=== PATIENT | female | born 1960 ===

== ENCOUNTER 2017-09-27 13:43 | Emergency (ER) | payer BC ==
[2017-09-27 14:02] VITALS: BMI 24.4
[2017-09-27 14:04] VITALS: RESP 18; O2SAT 100
[2017-09-27] MEDS ORDERED: Sodium Chloride 0.9% 1,000 ML IV STA (14:16)
--- NOTE | 2017-09-27 14:17 | ED PDOC ---
Arrival/HPI - General Time Seen by Provider: 09/27/17 13:48 Historian: Patient, Spouse - History of Present Illness Narrative History of Present Illness (Text): 09/27/17 14:11 Patient is a 57 year old female whose past medical history includes hypertension , who present to the Emergency department with her complaining of bilateral sided chest pain and epigastric pain that started 1 hour ago. Patient is primarily [place]ian speaking and her is translating for her. She reports waking up this morning with a headache and subsequently took her hypertension medication. She subsequently started feeling subjective chills along with epigastric pain, chest pain and diarrhea. She notes feeling well yesterday. Patient denies history of diabetes or any recent cardiology work up. Patient denies that her chest pain is exacerbated with breathing. Of note she mentions that her chest and epigastric pain is improving. Patient denies any sore throat, cough, shortness of breath, nausea, vomiting, urinary changes, back pain, new rashes, depression, or any other associated symptoms. Time/Duration: 1 hour Symptom Onset: Sudden Symptom Course: Improving Context: Home (after taking antihypertensive medication) Past Medical History - Provider Review Nursing Documentation Reviewed: Yes - Infectious Disease Hx of Infectious Diseases: None - Cardiac Hx Cardiac Disorders: Yes (chest pain 03/08/13) Hx Hypertension: Yes - Pulmonary Hx Respiratory Disorders: Yes Hx Asthma: Yes - Neurological Hx Neurological Disorder: No - HEENT Hx HEENT Disorder: No - Renal Hx Renal Disorder: No - Endocrine/Metabolic Hx Endocrine Disorders: No - Hematological/Oncological Hx Blood Disorders: No - Integumentary Hx Dermatological Disorder: No - Musculoskeletal/Rheumatological Hx Musculoskeletal Disorders: Yes Hx Arthritis: Yes - Gastrointestinal Hx Gastrointestinal Disorders: No - Genitourinary/Gynecological Hx Genitourinary Disorders: No - Psychiatric Hx Psychophysiologic Disorder: No Hx Substance Use: No - Surgical History Hx Section: Yes (X3) Hx Hysterectomy: Yes - Anesthesia Hx Anesthesia: Yes Hx Anesthesia Reactions: No Hx Malignant Hyperthermia: No - Suicidal Assessment Feels Threatened In Home Enviroment: No Family/Social History - Physician Review Nursing Documentation Reviewed: Yes Family/Social History: No Known Family HX Smoking Status: Never Smoked Hx Alcohol Use: No Hx Substance Use: No Hx Substance Use Treatment: No Allergies/Home Meds Allergies/Adverse Reactions: Allergies No Known Allergies Allergy (Verified 09/27/17 14:03) Home Medications: Home Meds Medication Instructions Recorded Confirmed Carvedilol [Coreg] 12.5 mg PO BID 08/11/12 04/27/15 Hydrochlorothiazide/Losartan 1 tab PO DAILY 08/11/12 04/27/15 [Losartan Potassium and Hydrochlorothiazide 25] Review of Systems - Review of Systems Constitutional: Fevers, Other (chills) ENT: absent: Sore Throat Respiratory: absent: SOB, Cough Cardiovascular: Chest Pain Gastrointestinal: Abdominal Pain, Diarrhea. absent: Nausea, Vomiting Genitourinary Female: absent: Urine Output Changes Musculoskeletal: absent: Back Pain Skin: absent: Rash Neurological: Headache Psychiatric: Depression Physical Exam Vital Signs Reviewed: Yes Vital Signs Temp Pulse Resp BP Pulse Ox 09/27/17 17:10 98.4 F 89 18 127/68 100 09/27/17 16:00 98 F 78 18 125/74 100 09/27/17 14:03 98.5 F 92 H 18 127/76 100 Temperature: Afebrile Blood Pressure: Normal Pulse: Regular Respiratory Rate: Normal Appearance: Positive for: Well-Appearing Mental Status: Positive for: Alert and Oriented X 3 - Systems Exam Head: Present: Atraumatic, Normocephalic Pupils: Present: PERRL Extroacular Muscles: Present: EOMI Conjunctiva: Present: Normal Mouth: Present: Moist Mucous Membranes Neck: Present: Normal Range of Motion Respiratory/Chest: Present: Clear to Auscultation, Good Air Exchange. No: Respiratory Distress, Accessory Muscle Use Cardiovascular: Present: Regular Rate and Rhythm, Normal S1, S2. No: Murmurs Abdomen: No: Tenderness, Distention, Peritoneal Signs Back: Present: Normal Inspection Upper Extremity: Present: Normal Inspection. No: Cyanosis, Edema Lower Extremity: Present: Normal Inspection. No: Edema Neurological: Present: GCS=15, CN II-XII Intact, Speech Normal Skin: Present: Warm, Dry, Normal Color. No: Rashes Psychiatric: Present: Alert, Oriented x 3, Normal Insight, Normal Concentration Medical Decision Making ED Course and Treatment: 09/27/17 14:21 Impression: Patient is a 57 year old female who presents to the emergency department complaining of abdominal pain, chest pain, and diarrhea which started approximately an hour ago after taking her hypertension medication. Differential Diagnosis included but are not limited to: Plan: -- Labs -- Cardiac enzymes -- EKG -- D-dimer -- Chest X-Ray -- Tylenol -- Aspirin -- IV fluids -- Reassess and disposition Prior Visits: Notes and results from previous visits were reviewed. Progress Notes: 09/27/17 14:28 EKG shows NSR at 92 BPM with normal intervals and axis, no ST changes. Interpreted by me. 09/27/17 15:08 Chest X-ray: Creator : Garry Live MD IMPRESSION: No active disease. 09/27/17 16:43 Patient is atypical for acs. She has b/l chest pain associated with diarrhea and subjective chills. Presentation more consistent with viral illness. Her only risk factor for cardiac disease is htn. She has a normal ekg. She was offered admission but she reports that she wants to home. She was instructed on the importance of following up with cardiology within 2 days. This was explained to patient in portuguese. - Lab Interpretations Lab Results: 09/27/17 15:26 09/27/17 15:26 Lab Results 09/27/17 15:26: Sodium 140, Potassium 3.5 L, Chloride 102, Carbon Dioxide 25, Anion Gap 16, BUN 16, Creatinine 0.6 L, Est GFR ( Amer) > 60, Est GFR ( Non-Af Amer) > 60, Random Glucose 103, Calcium 9.5, Phosphorus 3.7, Magnesium 1.8, Total Bilirubin 1.0, AST 365 H, ALT 161 H, Alkaline Phosphatase 106, Total Creatine Kinase 79, Troponin I < 0.01, Total Protein 7.5, Albumin 4.2, Globulin 3.3, Albumin/Globulin Ratio 1.3, Lipase 174 09/27/17 15:26: D-Dimer, Quantitative < 200 09/27/17 15:26: WBC 8.7, RBC 4.66, Hgb 13.8, Hct 40.5, MCV 86.9, MCH 29.6, MCHC 34.1, RDW 12.7, Plt Count 200, MPV 11.0, Gran % 90.2 H, Lymph % (Auto) 2.9 L, Elmore % (Auto) 6.5 H, Eos % (Auto) 0.3 L, Baso % (Auto) 0.1, Gran # 7.80 H, Lymph # (Auto) 0.3 L, Elmore # (Auto) 0.6, Eos # (Auto) 0.0, Baso # (Auto) 0.01, Neutrophils % (Manual) 91 H, Band Neutrophils % 2, Lymphocytes % (Manual) 4 L, Atypical Lymphs % 1 H, Monocytes % (Manual) 1, Eosinophils % (Manual) 1, Platelet Evaluation Normal I have reviewed the lab results: Yes - RAD Interpretation Radiology Orders: 09/27/17 14:08 CHEST TWO VIEWS (PA/LAT) [RAD] Stat Access Coordinator: Radiologist - EKG Interpretation Interpreted by ED Physician: Yes Type: 12 lead EKG - Medication Orders Current Medication Orders: Discontinued Medications Acetaminophen (Tylenol 325mg Tab) 650 mg PO STAT STA Stop: 09/27/17 14:17 Last Admin: 09/27/17 14:32 Dose: 650 mg MAR Pain/Vitals Document 09/27/17 14:32 LISETH (Rec: 09/27/17 14:33 LISETH [id number]) Pain Reassessment Is This A Pain ReAssessment? No Sleep Is patient sleeping during reassessment? No Presence of Pain Presence of Pain Yes Pain Scale Used Pain Scale Used Numeric Location Left, Right or Bilateral Left Upper or Lower Upper Pain Location Body Site Chest Description Intermittent Intensity 4 Scale Used Numeric Aspirin (Aspirin Chewable) 324 mg PO STAT STA Stop: 09/27/17 14:10 Last Admin: 09/27/17 14:29 Dose: 324 mg Sodium Chloride (Sodium Chloride 0.9%) 1,000 mls @ 999 mls/hr IV .Q1H1M STA Stop: 09/27/17 15:16 Last Admin: 09/27/17 14:27 Dose: 999 mls/hr eMAR Start Stop Document 09/27/17 14:27 LA (Rec: 09/27/17 14:28 LISETH [id number]) Intravenous Solution Start Date 09/27/17 Start Time 14:28 End Date 09/27/17 End time 15:29 Total Infusion Time 61 - Scribe Statement The provider has reviewed the documentation as recorded by the Scribanalia Mccullough Provider Scribe Attestation: All medical record entries made by the Scribe were at my direction and personally dictated by me. I have reviewed the chart and agree that the record accurately reflects my personal performance of the history, physical exam, medical decision making, and the department course for this patient. I have also personally directed, reviewed, and agree with the discharge instructions and disposition. Disposition/Present on Arrival - Present on Arrival Any Indicators Present on Arrival: No History of DVT/PE: No History of Uncontrolled Diabetes: No Urinary Catheter: No History Surgical Site Infection Following: None - Disposition Have Diagnosis and Disposition been Completed?: Yes Diagnosis: Epigastric pain Disposition: HOME/ ROUTINE Disposition Time: 16:44 Patient Plan: Discharge Condition: GOOD Discharge Instructions (ExitCare): Chest Pain Print Language: TUNISIAN Additional Instructions: Follow-up with PMD within 2 days. Follow-up with cardiology within 2 days. Return to ED if condition worsens. Referrals: Cherelle Cameron DO [Primary Care Provider] - Follow up with primary Maren Bradshaw MD [Staff Provider] - Follow up with primary Forms: [employer] ([place]ian)
--- NOTE | 2017-09-27 15:07 | RAD ---
Date of service: 09/27/2017 HISTORY: epigastric pain COMPARISON: No prior. TECHNIQUE: Chest PA and lateral FINDINGS: LUNGS: No active pulmonary disease. PLEURA: No significant pleural effusion identified. No pneumothorax apparent. CARDIOVASCULAR: Normal. OSSEOUS STRUCTURES: No significant abnormalities. VISUALIZED UPPER ABDOMEN: Normal. OTHER FINDINGS: None. IMPRESSION: No active disease.
[2017-09-27 15:42] LABS: BASO # 0.01 K/mm3 (0.0-2.0); BASO % 0.1 % (0.0-3.0); EOS % 0.3 % (1.5-5.0); GRAN % 90.2 % (50.0-68.0); HEMOGLOBIN 13.8 g/dL (12.0-16.0); LYMPH # 0.3 (1.2-3.4); LYMPH % 2.9 % (22.0-35.0); MEAN CELL VOLUME 86.9 fl (80.0-105.0); MEAN CORPUSCULAR HEMOGLOBIN 29.6 pg (25.0-35.0); MEAN CORPUSCULAR HGB CONC 34.1 g/dl (31.0-37.0); MONO # 0.6 (0.1-0.6); MONO % 6.5 % (1.0-6.0); PLATELET COUNT 200 10^3/uL (120.0-450.0); RBC 4.66 10^6/uL (3.5-6.1); RED CELL DISTRIBUTION WIDTH 12.7 % (11.5-14.5); WHITE BLOOD COUNT 8.7 10^3/ul (4.5-11.0)
[2017-09-27 15:46] LABS: ALB/GLOB RATIO 1.3 (1.1-1.8); ALBUMIN 4.2 g/dL (3.0-4.8); ALT/SGPT 161 U/L (7-56); AST/SGOT 365 U/L (14-36); BLOOD UREA NITROGEN 16 mg/dL (7-21); CALCIUM 9.5 mg/dL (8.4-10.5); GFR AFRICAN-AMERICAN > 60; GFR NON-AFRICAN AMERICAN > 60; LIPASE 174 U/L (23-300)
[2017-09-27 15:57] LABS: TROPONIN I < 0.01 ng/mL
[2017-09-27 16:52] LABS: ATYPICAL LYMPHOCYTE 1 % (0.0-0.0); BAND 2 % (0-2); EOSINOPHIL 1 % (0.0-3.0); LYMPHOCYTE 4 % (22.0-35.0); MONOCYTE 1 % (1.0-6.0); NEUTROPHIL 91 % (50.0-70.0); PLATELET ESTIMATE NORMAL (NORMAL)
[2017-09-27 19:59] VITALS: BP 127/68; PULSE 89; TEMP 98.4
--- NOTE | 2017-09-28 15:22 | CARD ---
APPROVED REPORT Date of service: 09/27/2017 EKG Measurement Heart [id number] <Conclusion> Normal sinus rhythm Normal ECG
== END 2017-09-27 17:10 | disposition home or self-care (01) ==
LOC: ED 13:43
DX: R10.13 Epigastric pain (principal); I10 Essential (primary) hypertension
CPT/HCPCS: 71046; 80053; 82550; 83690; 83735; 84100; 84484; 85025; 85378; 93005; 96360; 99283; J7030